=== PATIENT | female | born 1950 | race Caucasian/White ===

== ENCOUNTER 2016-12-11 20:56 | Inpatient (IN) ==
[2016-12-11] MEDS ORDERED: ASPIRIN 325 MG TABLET PO STA (22:31)
[2016-12-11] MEDS ORDERED: ASPIRIN 325 MG TABLET ONE (22:37)
--- NOTE | 2016-12-11 22:40 | Emergency Department Note ---
Arrival - Arrival Chief Complaint: Blood Pressure Stated Complaint: high b/p ED Nursing Triage Note: patient states her bp has been running high all day. highest at home was 170/112. saw dr mehta today and was told she had an abnormal ekg but doesnot know what was abnormal about it. bp in triage 174/144 , not on htn meds. no hx of htn Mode of Arrival: Ambulatory Time Seen by Provider: 12/11/16 22:15 - History of Present Illness HPI Narrative: History as above. The patient complains of intermittent episodes of pain between her shoulder blade, leg edema, shortness of breath and dyspnea on exertion. She had some nausea earlier today. Her pain lasts several minutes. She denies any modifying factors. She has had pain in the left arm as well. The patient had a history of breast CA in both breast. In 2004 she had a mastectomy and chemotherapy for right breast cancer. In 2014 she had a lumpectomy and radiation for cancer of the left breast. The patient had a pulmonary embolus in 1984 after she had had a hysterectomy. She has no history of smoking. She denies any fever, chills, cough, headache or abdominal pain. Allergies/Adverse Reactions: Allergies Allergy/AdvReac Type Severity Reaction Status Date / Time codeine Allergy Nausea Verified 12/11/16 21:04 Home Medications: Home Medications Medication Instructions Recorded Confirmed Type Aspirin [Ecotrin] 325 mg PO DAILY 09/26/15 12/11/16 History Escitalopram [Lexapro] 10 mg PO BEDTIME 09/26/15 12/11/16 History Meloxicam 7.5 mg PO DAILY PRN 09/26/15 09/26/15 History Triamterene/Hctz 37.5-25 Cap 1 capsule PO DAILY 09/26/15 12/11/16 History [Dyazide] Review of System - Review of System Review of Systems: I reviewed the rest review of systems unable as negative. Medical,Surgical,& Family Hx - Medical History Respiratory: History of: Pulmonary Embolism Reproductive: History of: Breast Cancer (angelito radiation/chemo/surgery) - Surgical History Reproductive Surgeries: Surgical HX of;: Breast Surgery - Social History Smoking Status: Never smoker Frequency of Alcohol Use: None Type of Drug Use: None Exam Physical Examination: The patient is in no acute distress HEENT: [Anicteric], [normocephalic], [extraocular muscles intact], [pupils equal round and reactive to light] Neck: [Supple], [no JVD], [trachea in the midline] CV: Regular rate and rhythm, no murmurs or gallops Lungs: [Clear to auscultation and percussion], [bilateral breath sounds] Abdomen:[Nondistended], [nontender throughout] Extremities:[Trace edema], [no clubbing or cyanosis] Neurological exam: [Alert and oriented 3], [cranial nerves II through XII grossly intact], [nonfocal] Skin: [Warm and dry], [no rash] Vital Signs: Vital Signs Temperature 98.2 F 12/11/16 20:59 Pulse Rate 91 H 12/11/16 20:59 Respiratory Rate 20 12/11/16 20:59 Blood Pressure 174/114 12/11/16 20:59 O2 Sat by Pulse Oximetry 95 12/11/16 20:59 Results - Labs CBC & BMP: 12/11/16 22:43 - EKG EKG results: interpreted by ERMD - Impressions Sinus rhythm, rate 76, normal axis, poor R-wave progression, Q waves in leads V1 and V2, no ST elevations - Diagnostic Findings Procedure: Chest x-ray: image reviewed by me (Increase interstitial markings at the bases, no cardiomegaly)
[2016-12-11 23:10] LABS: Basophils # 0.1 10*3/uL (0.0-0.2); Basophils % 1.1 % (0.0-0.8); Eosinophils # 0.2 10*3/uL (0.0-0.87); Eosinophils % 4.2 % (0.00-10.9); Hemoglobin 12.9 GM/DL (12.0-16.0); Immature Granulocytes % 0.4 %; Immature Granulocytes Absolute 0.02 #; Lymphocytes % 20.3 % (21.3-54.2); Mean Corpuscular HGB Conc 35.8 GM/DL (32-36); Mean Corpuscular Hemoglobin 32 PG (27-34); Mean Corpuscular Volume 88.9 FL (87-102); Mean Platelet Volume 12.2 FL (9.6-12.0); Monocytes # 0.5 10*3/uL (0.11-0.8); Monocytes % 9.7 % (1.7-12.7); Neutrophils % 64.3 % (38.7-73.9); Platelet Count 136 T/CUMM (130-400); Red Blood Count 4.05 MC/CUMM (3.8-5.5); Red Cell Distribution Width 12.3 % (9.3-17.3); White Blood Count 4.7 T/CUMM (4-12)
[2016-12-11 23:56] LABS: Alanine Aminotransferase 21 U/L (13-56); Albumin 2.5 G/DL (3.4-5.0); Alkaline Phosphatase 47 U/L (45-117); Aspartate Amino Transferase 19 U/L (0-37); Bilirubin,Total < 0.39 MG/DL (0.2-1.0); Blood Urea Nitrogen 17 MG/DL (7-18); Calcium 7.9 MG/DL (8.5-10.1); Glucose 109 MG/DL (74-106); Magnesium 2.2 MG/DL (1.8-2.4); Osmolality,Calculated 285.1 MOS/KG (273-304); Potassium 3.6 MMOL/L (3.5-5.1); Sodium 142 MMOL/L (136-145); Total Protein 4.8 G/DL (6.4-8.3); Troponin I Only 0.018 NG/ML (0.00-0.045)
[2016-12-12] MEDS ORDERED: METOPROLOL TARTRATE 5 MG/5 ML VIAL IV STA (00:36)
[2016-12-12] MEDS ORDERED: METOPROLOL TARTRATE 5 MG/5 ML VIAL IV ONE (01:16)
[2016-12-12] MEDS ORDERED: ONDANSETRON 4 MG/2 ML VIAL IV PRN (01:52)
[2016-12-12] MEDS ORDERED: ZALEPLON 5 MG CAPSULE PO PRN (01:52)
[2016-12-12] MEDS ORDERED: hydrALAZINE 20 MG/1 ML VIAL IV PRN (01:53)
--- NOTE | 2016-12-12 01:59 | Hospitalist History & Physical ---
Assessment and Plan (1) Congestive heart failure Status: Acute Assessment and plan: Admit to telemetry Consult cardiology Obtain echo in a.m. Lasix 40 IV daily continue home medications Follow-up BNP Current Visit: Yes Qualifiers: Congestive heart failure type: unspecified congestive heart failure type Congestive heart failure chronicity: unspecified congestive heart failure chronicity Qualified Code(s): I50.9 - Heart failure, unspecified (2) Pulmonary edema with congestive heart failure Status: Acute Assessment and plan: IV Lasix Current Visit: Yes (3) Uncontrolled hypertension Status: Acute Assessment and plan: Hydralazine as needed Current Visit: Yes History of Present Illness Chief complaint: SOB, Chest pain History of present illness: Ms. Chang is a 66 year old female patient complains of intermittent episodes of pain between her shoulder blade, leg edema, shortness of breath and dyspnea on exertion. She had some nausea earlier today. Her pain lasts several minutes. She denies any modifying factors. She has had pain in the left arm as well. The patient had a history of breast CA in both breast. In 2004 she had a mastectomy and chemotherapy for right breast cancer. In 2014 she had a lumpectomy and radiation for cancer of the left breast. The patient had a pulmonary embolus in 1984 after she had had a hysterectomy. She has no history of smoking. She denies any fever, chills, cough, headache or abdominal pain. She was seen by her PCP today and was noted to have an abnormal EKG and was being referred to a publicity director for further eval. She reports exertional dyspnea. No orthopnea. She has no hx of HTN but is on triam/hctz. Home Medications Medication Instructions Recorded Confirmed Type Aspirin [Ecotrin] 325 mg PO DAILY 09/26/15 12/11/16 History Escitalopram [Lexapro] 10 mg PO BEDTIME 09/26/15 12/11/16 History Meloxicam 7.5 mg PO DAILY PRN 09/26/15 09/26/15 History Triamterene/Hctz 37.5-25 Cap 1 capsule PO DAILY 09/26/15 12/11/16 History [Dyazide] Allergies Allergy/AdvReac Type Severity Reaction Status Date / Time codeine Allergy Nausea Verified 12/11/16 21:04 Medical,Surgical,& Family Hx - Medical History Respiratory: History of: Pulmonary Embolism Reproductive: History of: Breast Cancer (angelito radiation/chemo/surgery) - Surgical History Reproductive Surgeries: Surgical HX of;: Breast Surgery - Family History Family History: Reports;: Additional Family History (No significant family history) - Social History Smoking Status: Never smoker Have you smoked in the last 12 months: No Frequency of Alcohol Use: None Type of Drug Use: None Marital Status: Lives With:: Spouse Functional capacity: independent ambulation 12 point system: reviewed and no additional remarkable complaints except as stated - Cardiovascular Cardiovascular: Present: as per HPI, dyspnea, dyspnea on exertion, edema. Absent: chest pain at rest - Respiratory Respiratory: Present: as per HPI, dyspnea, dyspnea on exertion. Absent: hemoptysis, wheezing Exam - Constitutional Vitals: Period Temp Pulse Resp BP Sys/Lenz Pulse Ox Last 24 Hr 98.2 F-98.2 F 91-91 20-20 174-174/114-114 95-97 Exam: Constitutional System: No distress. No tremulousness. Head: Normocephalic, atraumatic. Ears, Nose and Throat System: No pain or tenderness. No epistaxis or discharge Eyes System: Pupils equal, round, and reactive. Extraocular muscles intact. Neck: Supple, without adenopathy, No jugular venous distention. No thyromegaly, neck mass, or prior surgery apparent. Respiratory System: Chest bilateral rales to auscultation. Cardiovascular System: Heart with regular rate and rhythm. No murmur. GI System: Abdomen soft, nontender. Normo active bowel sounds present. Musculoskeletal System: limbs with mild 1+ pedal edema. Full distal pulses. Neurological System: No discernable sensory deficit. No aphasia Psychiatric System: Conversation is rational Results - Labs CBC & BMP: 12/11/16 22:43 12/11/16 22:43 Lab Results: I have reviewed the past 24 hour labs - Diagnostic Findings Procedure: Chest x-ray: report reviewed by me, image reviewed by me
[2016-12-12] MEDS ORDERED: FUROSEMIDE 40 MG/4 ML VIAL ONE (02:35)
[2016-12-12] MEDS: FUROSEMIDE 40 MG/4 ML VIAL IV SCH ×2 (02:48→04:40)
[2016-12-12] MEDS ORDERED: POTASSIUM CHLORIDE 20 MEQ TABLET PO ONE (03:00)
--- NOTE | 2016-12-12 06:05 | EKG Report ---
Stationary ECG Study [facility] ER Test Date: 12/11/2016 11:14:35 PM Pat Name: JENN VELASQUEZ Department: Room: 326 Gender: F [employer] Professor: : 1950 Requested by: Nithin Mccoy Order Number: [id number] Reading MD: DO MATTHEW Intervals [place] Rate: 76 P: 41 ME: 188 QRS: -2 QRSD: 88 T: 30 QT: 396 QTc: 426 Interpretive Statements SINUS RHYTHM LOW QRS VOLTAGE IN PRECORDIAL LEADS SEPTAL MYOCARDIAL INFARCTION, PROBABLY OLD Electronically Signed On 12-12-16 06:18:06 CDT by DO MATTHEW [email or web address]
[2016-12-12 06:15] LABS: Troponin I Only 0.016 NG/ML (0.00-0.045)
[2016-12-12 06:18] LABS: Calcium 8.3 MG/DL (8.5-10.1); Magnesium 2.3 MG/DL (1.8-2.4); Osmolality,Calculated 288.7 MOS/KG (273-304); Potassium 3.5 MMOL/L (3.5-5.1); Risk Ratio 4.08; Thyroid Stimulating Hormone 10.3 uIU/ml (0.358-3.74); VLDL CHOLESTEROL 44.8 MG/DL
--- NOTE | 2016-12-12 06:51 | XRay Report ---
XR chest 1V portable Indication: Chest pain Comparison: 12 January 2013 Findings: The heart and mediastinum are stable in size and configuration. The pulmonary vascularity is slightly increased with bilateral increased interstitial lung density. No other lung infiltrates, effusions, pneumothorax or other abnormality is demonstrated. Impression: Findings suggest mild cardiac decompensation. PROCEDURE INTERPRETED AT [facility] DEPARTMENT OF RADIOLOGY Final Report Signed by: Dr. Juvenal Anthony
[2016-12-12] MEDS: ASPIRIN EC 325 MG TABLET PO SCH (08:27)
[2016-12-12] MEDS: TRIAMTERENE/HCTZ 37.5-25 MG CAPSULE PO SCH (08:27)
[2016-12-12] MEDS: ENOXAPARIN 40 MG/0.4 ML SYRINGE SUBCUT SCH (08:27)
[2016-12-12] MEDS: PANTOPRAZOLE 40 MG TABLET PO SCH (08:27)
[2016-12-12 08:29] LABS: Troponin I Only 0.016 NG/ML (0.00-0.045)
--- NOTE | 2016-12-12 08:58 | EKG Report ---
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
--- NOTE | 2016-12-12 14:09 | ECHO Report ---
Ella Chang Exam Date: 12/12/2016 08:57 Referring Physician: Technologist: Natty Rae RDCS Age: 66 Ht (in): 65 Wt (lb): 170 Gender: F Exam Location: [facility] Echo Indications: Chest pain, unspecified, Heart failure, unspecified, Pulmonary edema, Essential (primary) hypertension, Shortness of breath, hx Breast CA BP: 162 / 94 HR: 83 Rhythm: Sinus Technical Quality: IMPRESSIONS 1. Left ventricle is normal size systolic function ejection fraction 60%. No segmental wall motion normality is noted. 2. Left atrium at worst is mildly dilated. 3. Right ventricle left atrium are probably normal size. 4. Valvular structures are overall unremarkable and functionally normal. MEASUREMENTS (Male / Female) Normal Values 2D ECHO LV Diastolic Diameter PLAX 4.4 cm 4.2 - 5.9 / 3.9 - 5.3 cm LV Systolic Diameter PLAX 3.5 cm LV Fractional Shortening PLAX 20.8 % IVS Diastolic Thickness 0.8 cm 0.6 - 1.0 / 0.6 - 0.9 cm LVPW Diastolic Thickness 0.8 cm 0.6 - 1.0 / 0.6 - 0.9 cm RV Internal Dim ED PLAX 2.6 cm Aortic Root Diameter 2.9 cm LA Systolic Diameter LX 3.8 cm 3.0 - 4.0 / 2.7 - 3.8 cm DOPPLER TR Peak Velocity 286.0 cm/s TR Peak Gradient 32.7 mmHg FINDINGS Left Ventricle Normal left ventricular cavity size. Normal left ventricular wall thickness. Left ventricular ejection fraction is estimated at 60 %. Right Ventricle The right ventricle is normal in size and function. Right Atrium The right atrium is mildly enlarged. Left Atrium Mild atrial enlargement in apical view (elongated LA) otherwise size is normal. Mitral Valve Morphologically normal mitral valve. Trace to mild mitral valve regurgitation. Aortic Valve Morphologically normal aortic valve without significant sclerosis or stenosis. There is no aortic regurgitation. Tricuspid Valve Morphologically normal tricuspid valve. Mild tricuspid valve regurgitation. Tricuspid regurgitation velocities suggest a PAP of 43 mmHg. Pulmonic Valve Morphologically normal pulmonic valve without significant stenosis. There is no pulmonic regurgitation. Pericardium Normal pericardium without effusion. Aorta Normal ascending aorta dimension. Bautista Rosales MD (Electronically Signed) Final Date: 12 December 2016 14:08
--- NOTE | 2016-12-12 14:41 | Cardiology Consult Note ---
I, My Johnson RN, am scribing for, and in the presence of, Bautista Rosales MD 14:34. Assessment and Plan - Time spent with patient Time spent with patient: Greater than 30 minutes (Due to assessment, planning, documentation, medication review) (1) Left arm pain Status: Acute Assessment and plan: This is a 2 day duration and constant but is resolved now blood pressure control. She has no evidence of ischemia on ECG or troponins. I would expect that if her left arm pain constant was from a persistent and chronic ischemia for 2 days she had only some increase in troponins. We can arrange an outpatient cardiac stress test. Current Visit: Yes (2) Lower extremity edema Status: Acute Assessment and plan: This is resolved. She has been given some Lasix. There is no big change in her weight and her IVY's really are not reflective but not necessarily accurate. This may indicate this patient for blood pressure may respond well to a diuretic such as hydrochlorothiazide. Current Visit: Yes (3) Uncontrolled hypertension Status: Acute Assessment and plan: As noted above this patient blood pressure may respond to diuretic as well as continued use of another antihypertensive such as a LUL inhibitor or ARB. Current Visit: Yes (4) Elevated TSH Status: Acute Assessment and plan: There are orders to repeat this. Certainly thyroid disease could be contributing to some of this. Current Visit: Yes History of Present Illness - Data of Consult Patient: new to practice Consult date: 12/12/16 Requesting Physician: Asad Grant Primary care physician: Lorrie Maria - Consult Narrative Reason for consult: Shortness of breath History of present illness: Director Information Security: None PCP: Lorrie Maria Ms. Chang is a 66 year old female who has never seen a anesthesiology fellow in the past. She denies ever having had a heart catheterization done. She says she had a stress test done about 30 years ago. She does not remove why this was done, but states that it was okay. Past medical history includes cataracts, pulmonary embolism, GERD, shingles, Mnire's disease, and breast cancer. Surgical history includes right mastectomy, hysterectomy, tonsillectomy, and right rotator cuff. Family history is positive for heart disease in mother and father, cancer in father, diabetes in daughter, and hypertension in brother and son. She reports she is a lifetime non-smoker. She reports she has had swelling ongoing in her feet and hands for about 2 weeks now. She was at her primary care doctor yesterday and was also found to have elevated blood pressure. She has also been complaining of dyspnea on exertion for the past week and in her left shoulder and down her left arm. She says because of these symptoms her primary doctor told her at her appointment yesterday she would get her an appointment scheduled to see Dr. Akbar (had never seen, but she requested him because he sees family). She describes the pain having in her left shoulder and arm as an achy pain. It does not radiate anywhere else and she rates it a 3-4 on a scale of 1-10. She denies having any shortness of breath orthopnea. But she has become increasingly short of breath with exertion. She also reports she has been weak and fatigued. She tells me about a week before the swelling started she was diagnosed with shingles. She says she never broke out in a rash, but she had discomfort in her lower right back and hip. She was started on medication for this. Last night at home, her daughter checked her blood pressure and it continued to be elevated, so they presented to the emergency department for further evaluation. Blood pressure on arrival to the emergency department was 174/114. EKG showed sinus rhythm with heart rate of 76. Chest x-ray suggested mild cardiac decompensation. BNP was 176, cardiac biomarkers have been negative. Her TSH was elevated at 10.3. She was given Lopressor 5 mg IV and Lasix 40 mg IV in the emergency department. This morning she reports she does feel better and is not as tired. She says she cannot really tell if her breathing has improved because she is limited to go the bathroom and she has to exert herself more than that to be short of breath. She reports diuresing well throughout the night, and states that her swelling to her hands and feet is much better. Her blood pressure this morning has improved, it is 141/88. laboratory monitor currently shows sinus rhythm with heart rates in the 70s. She denies any chest pain. An echocardiogram has been ordered. Patient personally interviewed and examined chart reviewed and discussed this case with My Johnson RN. I agree with the assessment and information. Her arm pain is been persistent for 2 days and is not Awake or limit her activity. She states moving the arm in certain ways had actually improved the pain. She does the pain has resolved though since being in the hospital with improvement of her blood pressure. Exercise and physical activity did not exacerbate the pain. She has never had any chest discomfort or other anginal symptomatology. She denies any pain orthopnea syncope near syncope. She has is lower extremity edema that is now resolved. Since admission her blood pressures are markedly improved. Her ECG has some nonspecific T-wave abnormalities but certainly nothing that consistent overtly consistent with ischemia. Her echocardiogram overall is unremarkable with normal ejection fraction and it worse mild diastolic dysfunction. Valvular structures are unremarkable. No evidence of cardiac dysfunction here to account for any symptomatology or failure. Certainly this patient's history is somewhat atypical for cardiac as is her symptomatology. I would recommend a outpatient exercise SPECT study. We can arrange this. Patient should be a to be discharged when the primary service feels that she is stable from her blood pressure etc. Should be noted her TSH is elevated and there is an order for repeat studies tomorrow. CC: Isreal Mccarthy MD - Home Medications and Allergies Home Medications: Home Medications Medication Instructions Recorded Confirmed Type Aspirin [Ecotrin] 325 mg PO DAILY 09/26/15 12/12/16 History Escitalopram [Lexapro] 10 mg PO BEDTIME 09/26/15 12/12/16 History Meloxicam 7.5 mg PO DAILY PRN 09/26/15 12/12/16 History Triamterene/Hctz 37.5-25 Cap 1 capsule PO DAILY 09/26/15 12/12/16 History [Dyazide] Allergies/Adverse Reactions: Allergies Allergy/AdvReac Type Severity Reaction Status Date / Time codeine Allergy Nausea Verified 12/11/16 21:04 - Constitutional Constitutional: Present: as per HPI - EENT Eyes: Present: loss of vision, requires corrective lense Ears: Present: other (Mnire's disease). Absent: decreased hearing, ear pain Nose, mouth and throat: Absent: epistaxis, headache(s), neck pain - Cardiovascular Cardiovascular: Present: dyspnea on exertion, edema, lightheadedness. Absent: chest pain at rest, chest pain with activity, diaphoresis, dyspnea, radiating jaw, neck or arm pain, orthopnea, palpitations - Respiratory Respiratory: Present: cough, dyspnea on exertion. Absent: dyspnea, hemoptysis, wheezing - Gastrointestinal Gastrointestinal: Present: constipation, diarrhea, nausea, vomiting. Absent: abdominal pain, hematemesis, hematochezia, melena - Genitourinary Genitourinary: Absent: dysuria, hematuria - Musculoskeletal Musculoskeletal: Present: muscle weakness. Absent: back pain, limited range of motion - Neurological Neurological: Present: dizziness. Absent: confusion, frequent falls, headache(s ), syncope - Psychiatric Psychiatric: Present: depression. Absent: anxiety - Endocrine Endocrine: Present: fatigue - Hematologic/Lymphatic Hematologic/Lymphatic: Present: easy bruising. Absent: easy bleeding Medical,Surgical,& Family Hx - Medical History Cardio: History of: Hypertension Psychological: History of: Depression HEENT: History of: Ear Problem (Mnire's disease) Respiratory: History of: Pulmonary Embolism Gastrointestinal: History of: GERD Reproductive: History of: Breast Cancer (angelito radiation/chemo/surgery) Other: History of: Cancer (Breast) - Surgical History HEENT Surgeries: Surgical HX of: Tonsilectomy & Adenoidectomy Abdominal Surgeries: Surgical HX of: Colonoscopy Reproductive Surgeries: Surgical HX of;: Breast Surgery (Right mastectomy, left lumpectomy), Hysterectomy Orthopedic Surgeries: Surgical HX of;: Orthopedic Surgery - Family History Family History: Reports;: Family Cancer (mom had breast cancer, dad had colon cancer), Family Diabetes (Daughter), Family Heart Disease (Father, mother), Family Hypertension (Brother, son) - Social History Smoking Status: Never smoker Have you smoked in the last 12 months: No Frequency of Alcohol Use: None Type of Drug Use: None Lives With:: Children Functional capacity: independent ambulation Physical Examination Vital Signs Temp Pulse Resp BP Pulse Ox 98.2 F 91 H 20 174/114 95 12/11/16 20:59 12/11/16 20:59 12/11/16 20:59 12/11/16 20:59 12/11/16 20:59 General: Present: Appears Well, No Apparent Distress HEENT: Present: PERRL, Mucus Membranes Moist Neck: Present: Supple Neck, Midline Trachea, No Bruit Cardiac: Present: Reg Rate and Rhythm, No Murmur Lungs: Present: Bibasilar Rales, No Wheezes, No Rhonchi Neuro: Absent: Resting Tremor, Essential Tremor Abdomen: Present: Soft, Active Bowel Sounds, Non-Tender. Absent: Distended Skin: Absent: Rash, Suspicious Lesions Extremities: Present: Normal Upper Extr. Pulses, Normal Lower Extr. Pulses, Edema (Trace to bilateral upper and lower extremities) Result/EKG - Labs CBC & BMP: 12/11/16 22:43 12/12/16 04:25 Lab Results: I have reviewed the past 24 hour labs Labs: Laboratory Results - last 24 hr 12/11/16 12/11/16 12/12/16 22:43 22:43 00:00 WBC 4.7 RBC 4.05 Hgb 12.9 Hct 36.0 MCV 88.9 MCH 32 MCHC 35.8 RDW 12.3 Plt Count 136 MPV 12.2 H Neut % (Auto) 64.3 Lymph % (Auto) 20.3 L Nance % (Auto) 9.7 Eos % (Auto) 4.2 Baso % (Auto) 1.1 H Neut # (Auto) 3.0 Lymph # (Auto) 1.0 L [place]ance # (Auto) 0.5 Eos # (Auto) 0.2 Baso # (Auto) 0.1 Immature Gran % 0.4 Nucleated RBC % 0.0 Immature Gran # 0.02 Nucleated RBCs # 0.00 Immature Plt Fraction 0.0 Sodium 142 Potassium 3.6 Chloride 106 Carbon Dioxide 29 Anion Gap 10.6 BUN 17 Creatinine 0.60 GFR Calculation 101 BUN/Creatinine Ratio 28.00 H Glucose 109 H Calculated Osmolality 285.1 Calcium 7.9 L Magnesium 2.2 Total Bilirubin < 0.39 AST 19 ALT 21 Alkaline Phosphatase 47 Total Creatine Kinase 70 CK-MB (CK-2) Troponin I 0.018 B-Natriuretic Peptide 176 H Total Protein 4.8 L Albumin 2.5 L Globulin 2.3 Albumin/Globulin Ratio 1.0 L Triglycerides Cholesterol LDL Cholesterol VLDL Cholesterol HDL Cholesterol Heart Disease Risk Ratio TSH 3rd Generation 12/12/16 12/12/16 12/12/16 04:25 04:25 04:26 WBC RBC Hgb Hct MCV MCH MCHC RDW Plt Count MPV Neut % (Auto) Lymph % (Auto) Nance % (Auto) Eos % (Auto) Baso % (Auto) Neut # (Auto) Lymph # (Auto) Nance # (Auto) Eos # (Auto) Baso # (Auto) Immature Gran % Nucleated RBC % Immature Gran # Nucleated RBCs # Immature Plt Fraction Sodium 145 Potassium 3.5 Chloride 106 Carbon Dioxide 29 Anion Gap 13.5 BUN 14 Creatinine 0.70 GFR Calculation 96 BUN/Creatinine Ratio 20.00 Glucose 93 Calculated Osmolality 288.7 Calcium 8.3 L Magnesium 2.3 Total Bilirubin AST ALT Alkaline Phosphatase Total Creatine Kinase 64 CK-MB (CK-2) 1.5 Troponin I 0.016 B-Natriuretic Peptide 225 H Total Protein Albumin Globulin Albumin/Globulin Ratio Triglycerides 224 H Cholesterol 163 LDL Cholesterol 96.0 VLDL Cholesterol 44.8 HDL Cholesterol 40 Heart Disease Risk Ratio 4.08 TSH 3rd Generation 10.300 H 12/12/16 07:40 WBC RBC Hgb Hct MCV MCH MCHC RDW Plt Count MPV Neut % (Auto) Lymph % (Auto) Nance % (Auto) Eos % (Auto) Baso % (Auto) Neut # (Auto) Lymph # (Auto) Nance # (Auto) Eos # (Auto) Baso # (Auto) Immature Gran % Nucleated RBC % Immature Gran # Nucleated RBCs # Immature Plt Fraction Sodium Potassium Chloride Carbon Dioxide Anion Gap BUN Creatinine GFR Calculation BUN/Creatinine Ratio Glucose Calculated Osmolality Calcium Magnesium Total Bilirubin AST ALT Alkaline Phosphatase Total Creatine Kinase 61 CK-MB (CK-2) 1.1 Troponin I 0.016 B-Natriuretic Peptide Total Protein Albumin Globulin Albumin/Globulin Ratio Triglycerides Cholesterol LDL Cholesterol VLDL Cholesterol HDL Cholesterol Heart Disease Risk Ratio TSH 3rd Generation - Impressions Impressions: ECG was sinus rhythm with some nonspecific minimal T-wave abnormalities. Certainly no diagnostic abnormalities. - Diagnostic Findings Procedure: Chest x-ray: report reviewed by me - EKG EKG results: interpreted by me EKG shows: sinus rhythm Quality Measures - Stroke Symptom Onset Unknown: No I, Bautista Rosales MD, personally performed the services described in this documentation, ascribed by My Johnson RN in my presence, and it is both accurate and complete 441 .
[2016-12-12 14:59] LABS: Troponin I Only < 0.015 NG/ML (0.00-0.045)
[2016-12-12] MEDS ORDERED: ESCITALOPRAM 10 MG TABLET PO SCH (21:00)
[2016-12-13 03:55] LABS: Free T4 (Free Thyroxine) 0.99 NG/DL (0.76-1.46); Thyroid Stimulating Hormone 3.34 uIU/ml (0.358-3.74)
[2016-12-13] MEDS: ACETAMINOPHEN 325 MG TABLET PO PRN ×2 (04:53→09:23)
[2016-12-13 07:59] VITALS: BP 142/82
[2016-12-13] MEDS: TRIAMTERENE/HCTZ 37.5-25 MG CAPSULE PO SCH (08:14)
[2016-12-13] MEDS: FUROSEMIDE 40 MG/4 ML VIAL IV SCH (08:14)
[2016-12-13] MEDS: ASPIRIN EC 325 MG TABLET PO SCH (08:14)
[2016-12-13] MEDS: PANTOPRAZOLE 40 MG TABLET PO SCH ×2 (08:14→08:16)
[2016-12-13] MEDS: ENOXAPARIN 40 MG/0.4 ML SYRINGE SUBCUT SCH ×2 (08:14→08:16)
--- NOTE | 2016-12-13 09:08 | Cardiology Progress Note ---
Assessment and Plan (1) Left arm pain Status: Resolved Assessment and plan: This is noncardiac. Evaluation thus far is unremarkable. We can follow with the patient. Current Visit: Yes (2) Lower extremity edema Status: Acute Assessment and plan: This is resolved. Current Visit: Yes (3) Uncontrolled hypertension Status: Acute Assessment and plan: As noted above this patient blood pressure may respond to diuretic as well as continued use of another antihypertensive such as a LUL inhibitor or ARB. We will start the patient on some losartan. Current Visit: Yes (4) Elevated TSH Status: Resolved Assessment and plan: Repeat TSH and T4 are normal. Current Visit: Yes Cardiology - PN: Subj Interval history: Patient generally doing fairly well. Denies any shortness of breath chest pain. She is not having shortness of breath or edema. I suspect her issue is been secondary to untreated significant hypertension. The diuretic diuresis Lasix has helped. She is on chronic Dyazide therapy secondary to her Mnire's disease. I would recommend at this time that we start her on losartan. Is also noted that her serum albumin is low. We will check her urine to make sure she does not have proteinuria. She can continue follow-up with her primary care physician which she does not see on a routine basis. We will be glad to see the patient if needed or she would prefer to manage her hypertension. I think we can stop her IV Lasix today. Hopefully she will be able to be discharged. Exam (Progress Note) - Constitutional Vitals: Period Temp Pulse Resp BP Sys/Lenz Pulse Ox Last 24 Hr 97.2 F-98.6 F 71-81 16-20 119-142/67-82 94-96 Exam: General appearance: normal weight, no acute distress HEENT exam: normal inspection, atraumatic Neck exam: normal inspection no JVD. No carotid bruit. Trachea is in midline Respiratory/lungs exam: clear to auscultation bilaterally good air movement. Cardiovascular exam: regular rate and rhythm, no murmur or gallop or rub. No precordial lift. Chest wall exam: nontender GI/Abdominal exam: normal bowel sounds, soft, nontender, no abdominal bruits or pulsatile masses. Extremeties/musculoskeletal: normal inspection without edema or cyanosis. Neurological exam: alert, oriented X3, no focal deficits Psychiatric exam: normal affect, normal mood. Cognitive function is grossly normal. Skin exam: normal color, warm Result/EKG - Labs CBC & BMP: 12/11/16 22:43 12/12/16 04:25 Labs: Laboratory Results - last 24 hr 12/12/16 12/13/16 14:12 02:36 Total Creatine Kinase 64 CK-MB (CK-2) 1.4 Troponin I < 0.015 Free T4 0.99 TSH 3rd Generation 3.340 - Impressions Impressions: Telemetry normal sinus rhythm without dysrhythmias. Quality Measures - Stroke Symptom Onset Unknown: No Specialty Discharge - Follow Up or Referrals Follow up with: Bautista Rosales MD [Physician] - (2 weeks for hypertension and left arm pain for possible further evaluation.)
[2016-12-13] MEDS ORDERED: LOSARTAN 50 MG TABLET PO SCH (09:30)
[2016-12-13 10:11] LABS: Apearance,Urine CLEAR (Clear); Bacteria,Urine Occasional /HPF (Few); Bilirubin,Urine Negative (Negative); Blood, Urine Small mg/dL (Negative); Glucose,Urine (UA) Negative (Negative); Hyaline Casts,Urine 1 /LPF (0-3); Ketones,Urine Negative (Negative); Mucus,Urine Occasional /LPF (Occasional); Nitrite,Urine Negative (Negative); Protein,Urine Negative; RBC,Urine 2 /HPF (0-4); Squamous Epithelial Cell,Urine Occasional /HPF (0-10); Urine Color Colorless (Yellow); Urine Specific Gravity 1.003 (1.001-1.035); Urine Urobilinogen < 2.0 EU/DL (0.2-1.0); WBC,Urine <1 /HPF (0-6)
--- NOTE | 2016-12-13 10:19 | Discharge Summary ---
Hospital Course - Hospital Course Hospital Course: The patient was admitted to the hospital for shortness of breath and discomfort in the left arm. The patient was found to have some pulmonary edema. The blood pressure was elevated. The patient's symptoms improved with diuresis and blood pressure control. The patient had echocardiogram which revealed left ventricular ejection fraction of 60% and mild wall hypertrophy. Dr. Rosales recommended that we start losartan, continue Dyazide, and follow-up with him in the office. I am also going to add a low-dose of amlodipine. On the date of discharge, chest is clear and heart has regular rate and rhythm. Abdomen soft. The patient was screened for tobacco and found to be a never smoker. She received tobacco avoidance education. The patient makes her own decisions and wish to be full code during the hospital stay. Discharge time including writing prescriptions and preparing discharge documentation is required 32 minutes. - Time spent with patient Time with patient DS: Greater than 30 minutes Diagnosis - Discharge Diagnosis (1) Essential hypertension Status: Chronic Specialty Discharge - Follow Up or Referrals Follow up with: Bautista Rosales MD [Physician] - (2 weeks for hypertension and left arm pain for possible further evaluation.) Discharge Plan - Discharge Data Disposition: Disch To Home/Self Care Condition at Discharge: Stable Discharge Diet: heart healthy Activity: resume usual activities as tolerated - Discharge Medications New amLODIPine [Norvasc] 5 mg PO DAILY #30 tablet Losartan [Cozaar] 50 mg PO DAILY #60 tablet Continue Aspirin [Ecotrin] 325 mg PO DAILY Triamterene/Hctz 37.5-25 Cap [Dyazide] 1 capsule PO DAILY Meloxicam 7.5 mg PO DAILY PRN PRN Reason: Pain Escitalopram [Lexapro] 10 mg PO BEDTIME - Follow Up or Referral Follow Up: Bautista Rosales MD [Physician] - (2 weeks for hypertension and left arm pain for possible further evaluation.) - Forms/Instructions Exam - Constitutional Vitals: Period Temp Pulse Resp BP Sys/Lenz Pulse Ox Last 24 Hr 97.2 F-98.6 F 71-81 16-20 119-142/67-82 94-96 Discharge Results Labs on day of discharge: Labs from last 24 hours 12/13/16 12/13/16 12/12/16 10:00 02:36 14:12 Total Creatine Kinase 64 CK-MB (CK-2) 1.4 Troponin I < 0.015 Free T4 0.99 TSH 3rd Generation 3.340 Urine Color Colorless Urine Appearance Clear Urine pH 6.0 Ur Specific [place] 1.003 Urine Protein Negative Urine Glucose (UA) Negative Urine Ketones Negative Urine Blood Small Urine Nitrate Negative Urine Bilirubin Negative Urine Urobilinogen < 2.0 H Urine Leukocytes Negative Urine RBC 2 Urine WBC <1 Ur Squamous Epith Cells Occasional Urine Bacteria Occasional Hyaline Casts 1 Urine Mucus Occasional Ur Culture Indicated? Not indicated DS: Provider Date of admission: 12/12/16 01:52 Primary care physician: Francesco Leonard Attending physician on admission: Asad Grant MD Consults: 12/12/16 01:52 Consult to Physician [CONS] Routine Comment: chf, HTN Consulting Provider: Cardiology - [facility] Consulting Provider Notified: Yes When should Consulting Provider be notified: Now Person Notified: jimena brewer Date Notified: 12/12/16 Time Notified: 08:09 Discharging clinician: Isreal Mccarthy MD
--- NOTE | 2016-12-22 08:32 | Physician Query Form ---
CLICK EDIT DOCUMENT TO SELECT QUERY ANSWER --> OK --> SIGN Malka Schwartz RN Clinical Oiling Machine Operator W) [phone] (f) [phone] [email or web address] PROVIDERS: Make your selection(s) from the choices in EACH section by typing an "x" and enter comments in the comment section. Please use your independent medical judgment in providing your response. This request does not imply that any particular answer is desired or expected. CLINICAL INDICATORS: (Providers should not edit this section) Based on documentation of "the patient was found to have some pulmonary edema". Pt. treated with IV Lasix. Clarify which of the following accurately represents the acuity of the above diagnosis. ( X) Acute ( ) Acute on chronic ( ) Chronic stable condition ( ) Remission ( ) Other, please specify: ( ) Clinically unable to determine COMMENTS: PLEASE ALSO DOCUMENT RESPONSE IN PROGRESS NOTES AND/OR DISCHARGE SUMMARY Use of terms such as suspected, likely, or probable (associated with a specific diagnosis that is being evaluated, monitored, or treated as if it exists) are acceptable and can be restated in the discharge summary if not ruled out. MTDD
== END 2016-12-13 10:46 | disposition home or self-care (01) | DRG 304 ==
LOC: N.ED 20:56 → N.EDINP 12-12 01:52 → SUATTDRO 12-12 01:52 → N.3E 12-12 02:51
PROVIDERS: ADMIT Family Medicine; ATTEND Internal Medicine